=== PATIENT | male | born 1950 | race Two or more races ===

== ENCOUNTER 2017-06-19 09:10 | Outpatient (CLI) | payer OTHER ==
[~2017-06-19 09:10] MED LIST: IBUPROFEN800 MG PO; ORPH100T PO
== END 2017-06-19 09:13 | disposition home or self-care (01) ==
LOC: RAD 09:10
DX: M19.049 Primary osteoarthritis, unspecified hand (principal); M54.12 Radiculopathy, cervical region

== ENCOUNTER 2017-06-26 09:30 | Outpatient (CLI) | payer OTHER | END 2017-06-26 09:38 | disposition home or self-care (01) | LOC: LAB 09:30 | DX: I10 Essential (primary) hypertension (principal); Z12.11 Encounter for screening for malignant neoplasm of colon; E78.2 Mixed hyperlipidemia; N41.8 Other inflammatory diseases of prostate ==

== ENCOUNTER 2017-07-03 10:04 | Emergency (ER) | payer OTHER ==
[~2017-07-03] VITALS: Ht 157.5 cm; Wt 61.7 kg
[2017-07-03] MEDS ORDERED: DICLOFENAC POTA50 MG (10:41)
== END 2017-07-03 17:11 | disposition home or self-care (01) ==
LOC: ER 10:04
DX: M54.5 Low back pain (principal)

== ENCOUNTER → 2018-05-28 08:14 | Outpatient (CLI) | payer OTHER ==
[~2018-05-28 08:14] MED LIST changes: +DICLOFENAC POTA50 MG
== END | disposition home or self-care (01) ==
LOC: LAB 08:14
DX: N41.8 Other inflammatory diseases of prostate (principal)

== ENCOUNTER 2018-05-31 09:53 | Outpatient (CLI) | payer OTHER | END 2018-05-31 09:57 | disposition home or self-care (01) | LOC: LAB 09:53 | DX: N41.8 Other inflammatory diseases of prostate (principal) ==

== ENCOUNTER 2018-06-25 09:59 | Emergency (ER) | payer OTHER ==
[~2018-06-25] VITALS: Ht 157.5 cm; Wt 59.0 kg
== END 2018-06-25 11:27 | disposition home or self-care (01) ==
LOC: ER 09:59
DX: R11.11 Vomiting without nausea (principal)

== ENCOUNTER 2018-12-24 08:35 | Outpatient (CLI) | payer OTHER | END 2018-12-24 15:07 | disposition home or self-care (01) | LOC: LAB 08:35 | DX: R06.09 Other forms of dyspnea (principal); I10 Essential (primary) hypertension; D64.89 Other specified anemias; E78.00 Pure hypercholesterolemia, unspecified; N39.0 Urinary tract infection, site not specified ==

== ENCOUNTER → 2018-12-30 | Outpatient (CLI) | payer OTHER | END | disposition home or self-care (01) | LOC: RAD 17:25 | DX: R06.09 Other forms of dyspnea (principal); R06.02 Shortness of breath ==

== ENCOUNTER 2019-04-01 09:17 | Outpatient (CLI) | payer OTHER | END 2019-04-01 09:23 | disposition home or self-care (01) | LOC: LAB 09:17 | DX: N39.0 Urinary tract infection, site not specified (principal); I10 Essential (primary) hypertension; E78.00 Pure hypercholesterolemia, unspecified; Z12.12 Encounter for screening for malignant neoplasm of rectum; N41.8 Other inflammatory diseases of prostate ==

== ENCOUNTER → 2019-04-02 13:17 | Outpatient (CLI) | payer OTHER | END | disposition home or self-care (01) | LOC: LAB 13:17 | DX: N41.8 Other inflammatory diseases of prostate (principal); E78.00 Pure hypercholesterolemia, unspecified; I10 Essential (primary) hypertension; Z12.12 Encounter for screening for malignant neoplasm of rectum; N39.0 Urinary tract infection, site not specified ==

== ENCOUNTER 2019-04-11 11:40 | Outpatient (CLI) | payer OTHER | END 2019-04-11 11:48 | disposition home or self-care (01) | LOC: SONOGRAMA 11:40 → MAMO-SONO 11:45 → SONOGRAMA 11:48 | DX: M25.511 Pain in right shoulder (principal) ==

== ENCOUNTER 2019-08-25 10:29 | Outpatient (CLI) | payer OTHER | END 2019-08-25 10:34 | disposition home or self-care (01) | LOC: LAB 10:29 | PROVIDERS: ATTEND Internal Medicine Hepatology | DX: K62.5 Hemorrhage of anus and rectum (principal); Z12.11 Encounter for screening for malignant neoplasm of colon ==

== ENCOUNTER → 2019-09-23 10:00 | Outpatient (CLI) | payer OTHER | END | disposition home or self-care (01) | LOC: LAB 10:00 | DX: N39.0 Urinary tract infection, site not specified (principal); I10 Essential (primary) hypertension; Z12.12 Encounter for screening for malignant neoplasm of rectum; E78.00 Pure hypercholesterolemia, unspecified; N41.8 Other inflammatory diseases of prostate ==

== ENCOUNTER 2020-03-30 08:18 | Outpatient (CLI) | payer OTHER | END 2020-03-30 08:21 | disposition home or self-care (01) | LOC: LAB 08:18 | DX: D64.89 Other specified anemias (principal); N39.0 Urinary tract infection, site not specified; E78.00 Pure hypercholesterolemia, unspecified; I10 Essential (primary) hypertension ==

== ENCOUNTER 2020-06-29 09:19 | Outpatient (CLI) | payer OTHER | END 2020-06-29 09:25 | disposition home or self-care (01) | LOC: LAB 09:19 | DX: N41.8 Other inflammatory diseases of prostate (principal); N39.0 Urinary tract infection, site not specified; Z12.12 Encounter for screening for malignant neoplasm of rectum; I10 Essential (primary) hypertension ==

== ENCOUNTER → 2020-07-01 10:18 | Outpatient (CLI) | payer OTHER | END | disposition home or self-care (01) | LOC: LAB 10:18 | DX: I10 Essential (primary) hypertension (principal); N41.8 Other inflammatory diseases of prostate; N39.0 Urinary tract infection, site not specified; Z12.11 Encounter for screening for malignant neoplasm of colon ==

== ENCOUNTER 2020-11-02 10:47 | Outpatient (CLI) | payer OTHER | END 2020-11-02 10:52 | disposition home or self-care (01) | LOC: RAD 10:47 | DX: R07.89 Other chest pain (principal); I70.0 Atherosclerosis of aorta ==

== ENCOUNTER → 2020-12-14 08:34 | Outpatient (CLI) | payer OTHER | END | disposition home or self-care (01) | LOC: LAB 08:34 | DX: D64.89 Other specified anemias (principal); R73.01 Impaired fasting glucose ==

== ENCOUNTER 2021-03-22 08:58 | Outpatient (CLI) | payer OTHER | END 2021-03-22 15:00 | disposition home or self-care (01) | LOC: LAB 08:58 | DX: I10 Essential (primary) hypertension (principal); Z12.12 Encounter for screening for malignant neoplasm of rectum; R73.01 Impaired fasting glucose; N41.9 Inflammatory disease of prostate, unspecified ==

== ENCOUNTER 2021-06-14 08:00 | Outpatient (CLI) | payer OTHER | END 2021-06-14 08:07 | disposition home or self-care (01) | LOC: LAB 08:00 | DX: D64.9 Anemia, unspecified (principal); R73.01 Impaired fasting glucose; E78.00 Pure hypercholesterolemia, unspecified ==

== ENCOUNTER 2021-09-27 09:03 | Outpatient (CLI) | payer OTHER | END 2021-09-27 10:05 | disposition home or self-care (01) | LOC: LAB 09:03 | DX: E78.00 Pure hypercholesterolemia, unspecified (principal) ==

== ENCOUNTER 2021-10-23 13:49 | Outpatient (CLI) | payer OTHER | END 2021-10-23 13:59 | disposition home or self-care (01) | LOC: SONOGRAMA 13:49 | DX: K40.90 Unilateral inguinal hernia, without obstruction or gangrene, not specified as recurrent (principal) ==

== ENCOUNTER 2022-03-21 09:13 | Outpatient (CLI) | payer OTHER | END 2022-03-21 09:14 | disposition home or self-care (01) | LOC: LAB 09:13 | DX: I10 Essential (primary) hypertension (principal); Z12.12 Encounter for screening for malignant neoplasm of rectum; N39.0 Urinary tract infection, site not specified; E78.00 Pure hypercholesterolemia, unspecified ==

== ENCOUNTER 2022-03-27 09:55 | Outpatient (CLI) | payer OTHER | END 2022-03-27 09:56 | disposition home or self-care (01) | LOC: LAB 09:55 | DX: Z12.12 Encounter for screening for malignant neoplasm of rectum (principal); N39.0 Urinary tract infection, site not specified; E78.00 Pure hypercholesterolemia, unspecified ==

== ENCOUNTER 2022-04-01 16:25 | Outpatient (CLI) | payer OTHER | END 2022-04-01 16:42 | disposition home or self-care (01) | LOC: RAD 16:25 | DX: L98.9 Disorder of the skin and subcutaneous tissue, unspecified (principal) ==

== ENCOUNTER → 2022-06-29 07:15 | Outpatient (CLI) | payer OTHER | END | disposition home or self-care (01) | LOC: LAB 07:15 | DX: D64.9 Anemia, unspecified (principal); I10 Essential (primary) hypertension; N39.0 Urinary tract infection, site not specified ==

== ENCOUNTER 2022-09-04 13:33 | Outpatient (CLI) | payer OTHER | END 2022-09-04 13:48 | disposition home or self-care (01) | LOC: TOM 13:33 | PROVIDERS: ATTEND Psychiatry & Neurology Neurology | DX: I67.82 Cerebral ischemia (principal) ==

== ENCOUNTER 2022-09-26 10:08 | Outpatient (CLI) | payer OTHER | END 2022-09-26 10:13 | disposition home or self-care (01) | LOC: LAB 10:08 | DX: E78.00 Pure hypercholesterolemia, unspecified (principal); N39.0 Urinary tract infection, site not specified ==

== ENCOUNTER → 2023-01-16 08:54 | Outpatient (CLI) | payer OTHER ==
[2023-01-18 09:11] LABS: FOLIC ACID > 20.00 ng/ml (4.78-20); VITAMIN D3 25 HYDROXY 33.71 ng/ml (30-120)
== END | disposition home or self-care (01) ==
LOC: LAB 08:54
DX: Z13.1 Encounter for screening for diabetes mellitus (principal); E55.9 Vitamin D deficiency, unspecified; D64.9 Anemia, unspecified

== ENCOUNTER 2023-04-17 09:10 | Outpatient (CLI) | payer OTHER ==
[2023-04-17 10:29] LABS: URINE APPEARANCE Clear; URINE BILIRRUBIN Negative (NEGATIVE); URINE BLOOD Negative; URINE COLOR Yellow; URINE GLUCOSE Negative (NEGATIVE); URINE LEUKOCYTE Negative; URINE NITRATE Negative; URINE PROTEIN Negative (NEGATIVE); URINE UROBILINOGEN 0.2 E.U./dl
[2023-04-17 10:33] LABS: URINE RBC 9.9 uL (0.0-20.8)
[2023-04-17 10:44] LABS: HEMATOCRIT 41.1 % (39.0-48.0); HEMOGLOBIN 14.3 g/dL (13-16.00); MEAN CELL VOLUME 89.2 fL (80.0-100.00); MEAN CORPUSCULAR HGB CONC 34.7 g/dl (32.0-36.0); PLATELET COUNT 260 K/uL (150-450); RED BLOOD COUNT 4.61 M/uL (4.00-6.00); RED CELL DISTRIBUTION WIDTH 13.8 % (11.5-14.5)
[2023-04-17 10:49] LABS: URINE BACTERIA 2.5 uL (0.0-1933); URINE EPITHELIAL CELLS 0.9 uL (0.0-38.8); URINE WBC 1.3 uL (0.0-23.2)
[2023-04-17 11:10] LABS: ALBUMIN 3.7 gm/dL (3.4-5.0); BILIRUBIN TOTAL 0.85 mg/dL (0.3-1.2); CALCIUM 8.9 mg/dL (8.5-10.1); CHOL HDL RATIO 3.6 (0-5.0); CREATININE SERUM 1.11 mg/dL (0.70-1.30); GFR 64.58; GLOBULINA 3.1 G/DL (2.4-3.5); POTASSIUM 4.17 mEq/L (3.5-5.1); TOTAL PROTEIN 6.8 gm/dL (6.4-8.2)
== END 2023-04-17 09:18 | disposition home or self-care (01) ==
LOC: LAB 09:10
DX: Z12.12 Encounter for screening for malignant neoplasm of rectum (principal)

== ENCOUNTER → 2023-04-20 10:23 | Outpatient (CLI) | payer OTHER ==
[2023-04-20 12:36] LABS: ob NEGATIVE (NEGATIVE)
== END | disposition home or self-care (01) ==
LOC: LAB 10:23
DX: D64.9 Anemia, unspecified (principal); I10 Essential (primary) hypertension; E78.00 Pure hypercholesterolemia, unspecified; Z12.12 Encounter for screening for malignant neoplasm of rectum; N39.0 Urinary tract infection, site not specified

== ENCOUNTER 2024-03-11 11:08 | Outpatient (CLI) | payer OTHER ==
[2024-03-11 12:21] LABS: CALCIUM 8.8 mg/dL (8.5-10.1); CREATININE SERUM 1.02 mg/dL (0.70-1.30); GFR 71.2; POTASSIUM 4.44 mEq/L (3.5-5.1)
== END 2024-03-11 11:12 | disposition home or self-care (01) ==
LOC: LAB 11:08
DX: E78.00 Pure hypercholesterolemia, unspecified (principal); Z12.11 Encounter for screening for malignant neoplasm of colon

== ENCOUNTER 2024-06-17 11:02 | Outpatient (CLI) | payer OTHER ==
[2024-06-17 11:16] LABS: HEMATOCRIT 42.3 % (39.0-48.0); HEMOGLOBIN 14.8 g/dL (13-16.00); MEAN CELL VOLUME 87.3 fL (80.0-100.00); MEAN CORPUSCULAR HEMOGLOBIN 30.5 pg (27.00-32.0); PLATELET COUNT 283 K/uL (150-450); RED BLOOD COUNT 4.85 M/uL (4.00-6.00); RED CELL DISTRIBUTION WIDTH 14.5 % (11.5-14.5)
[2024-06-17 11:22] LABS: PH,URINE 7.5 (5.0-8.0); URINE APPEARANCE Clear; URINE BILIRRUBIN Negative (NEGATIVE); URINE BLOOD Negative; URINE COLOR Yellow; URINE GLUCOSE Negative (NEGATIVE); URINE KETONE Negative (NEGATIVE); URINE LEUKOCYTE Negative; URINE NITRATE Negative; URINE PROTEIN Negative (NEGATIVE); URINE UROBILINOGEN 0.2 E.U./dl
[2024-06-17 11:25] LABS: URINE RBC 15.7 uL (0.0-20.8)
[2024-06-17 16:26] LABS: URINE WBC 0.6 uL (0.0-23.2)
[2024-06-17 16:27] LABS: URINE BACTERIA 2.4 uL (0.0-1933)
[2024-06-17 16:40] LABS: ALBUMIN 3.8 gm/dL (3.4-5.0); CALCIUM 8.8 mg/dL (8.5-10.1); CREATININE SERUM 1.11 mg/dL (0.70-1.30); GFR 64.41; GLOBULINA 3.5 G/DL (2.4-3.5); POTASSIUM 4.36 mEq/L (3.5-5.1); TOTAL PROTEIN 7.3 gm/dL (6.4-8.2)
== END 2024-06-17 11:09 | disposition home or self-care (01) ==
LOC: LAB 11:02
DX: D64.9 Anemia, unspecified (principal); I10 Essential (primary) hypertension; N39.0 Urinary tract infection, site not specified

== ENCOUNTER 2024-07-27 12:36 | Outpatient (CLI) | payer OTHER | END 2024-07-27 12:50 | disposition home or self-care (01) | LOC: MRI 12:36 | PROVIDERS: ATTEND General Practice | DX: G31.84 Mild cognitive impairment of uncertain or unknown etiology (principal) | CPT/HCPCS: 70551 ==

== ENCOUNTER 2024-07-29 08:25 | Outpatient (CLI) | payer OTHER ==
[2024-07-29 10:53] LABS: BASO % 0.7 % (0.1-1.2); EOS # 0.15 (0.04-0.54); EOS % 2.2 % (0.7-7.0); HEMATOCRIT 40.3 % (40.1-51.0); HEMOGLOBIN 14.2 g/dL (13.7-17.5); LYMPH # 2.19 (1.18-3.74); LYMPH % 32.4 % (19.3-53.1); MEAN CORPUSCULAR HEMOGLOBIN 30.1 pg (25.6-32.2); MONO % 11.8 % (4.7-12.5); NEUT # 3.55 (1.56-6.13); NEUT % 52.6 % (34.0-71.1); PLATELET COUNT 282 K/uL (163-369); RED BLOOD COUNT 4.71 M/uL (4.63-6.08)
[2024-07-29 11:40] LABS: ALBUMIN 3.7 gm/dL (3.4-5.0); BILIRUBIN TOTAL 0.93 mg/dL (0.3-1.2); CALCIUM 8.9 mg/dL (8.5-10.1); CHOL HDL RATIO 3.5 (0-5.0); CREATININE SERUM 1.09 mg/dL (0.70-1.30); GFR 65.77; GLOBULINA 3.2 G/DL (2.4-3.5); POTASSIUM 3.95 mEq/L (3.5-5.1); T4 TOTAL 6.98 UG/DL (4.5-12.1); TOTAL PROTEIN 6.9 gm/dL (6.4-8.2); TSH 2.99 uIU/mL (0.358-3.74)
[2024-07-31 10:19] LABS: FOLIC ACID > 20.00 ng/ml (4.78-20); VITAMIN D3 25 HYDROXY 27.61 ng/ml (30-120)
== END 2024-07-29 08:31 | disposition home or self-care (01) ==
LOC: LAB 08:25
PROVIDERS: ATTEND General Practice
DX: D51.9 Vitamin B12 deficiency anemia, unspecified (principal); E03.9 Hypothyroidism, unspecified

== ENCOUNTER → 2024-10-14 08:39 | Outpatient (CLI) | payer OTHER ==
[2024-10-14 11:23] LABS: BUN CREA RATIO 15.0 (7.0-25.0); CHOL HDL RATIO 3.5 (0-5.0); CREATININE SERUM 1.08 mg/dL (0.70-1.30); GFR 66.48; GLUCOSE FASTING 91.0 mg/dL (65-100); HDL 45.0 mg/dl (40-60); LDL 100.0 mg/dl (0-130); OSMOLALITY SERUM 275.0 MOSM/KG (275-295); VLDL 14.0 (0-39)
== END | disposition home or self-care (01) ==
LOC: LAB 08:39
DX: I10 Essential (primary) hypertension (principal); E78.00 Pure hypercholesterolemia, unspecified

== ENCOUNTER 2024-12-01 18:55 | Emergency (ER) | payer OTHER ==
[~2024-12-01] VITALS: Ht 157.5 cm; Wt 60.8 kg
[2024-12-01] MEDS ORDERED: LACTOBACILLUS ACIDOPHILUS 1 CAP CAP PO ONE ×2 (21:55→22:00)
[2024-12-01] MEDS ORDERED: FAMOTIDINE/PF 20 MG/2 ML VIAL ONE (21:56)
[2024-12-01] MEDS ORDERED: 0.9 % SODIUM CHLORIDE 100 ML IV ONE (22:00)
[2024-12-01] MEDS ORDERED: FAMOTIDINE/PF 20 MG/2 ML VIAL IV ONE (22:00)
[2024-12-01 22:20] LABS: BASO % 0.1 % (0.1-1.2); EOS # 0.20 (0.04-0.54); EOS % 2.1 % (0.7-7.0); LYMPH # 1.89 (1.18-3.74); LYMPH % 20.0 % (19.3-53.1); MEAN PLATELET VOLUME 9.20 fl (9.4-12.4); MONO # 1.22 (0.24-0.82); NEUT # 6.08 (1.56-6.13); NEUT % 64.6 % (34.0-71.1); RED CELL DISTRIBUTION WIDTH 13.3 % (11.6-14.4)
[2024-12-01 22:23] LABS: MONO % 12.9 % (4.7-12.5)
[2024-12-01 22:51] LABS: ALT/SGPT 27.0 U/L (12-78); AST/SGOT 24.0 U/L (15-37); BILIRUBIN TOTAL 0.92 mg/dL (0.3-1.2); BUN CREA RATIO 19.0 (7.0-25.0); CREATININE SERUM 1.29 mg/dL (0.70-1.30); GFR 54.15; GLOBULINA 3.7 G/DL (2.4-3.5); GLUCOSE FASTING 113.0 mg/dL (65-100); OSMOLALITY SERUM 282.0 MOSM/KG (275-295)
[2024-12-02 02:23] LABS: URINE APPEARANCE Clear; URINE BILIRRUBIN Negative (NEGATIVE); URINE BLOOD Negative; URINE COLOR Yellow; URINE GLUCOSE Negative (NEGATIVE); URINE KETONE Negative (NEGATIVE); URINE LEUKOCYTE Negative; URINE NITRATE Negative; URINE PROTEIN Negative (NEGATIVE); URINE UROBILINOGEN 0.2 E.U./dl
[2024-12-02 02:28] LABS: URINE BACTERIA 8.3 uL (0.0-1933); URINE EPITHELIAL CELLS 1.8 uL (0.0-38.8); URINE RBC 4.8 uL (0.0-20.8); URINE WBC 17.4 uL (0.0-23.2)
[2024-12-02 02:31] LABS: URINE CAST 0.29 uL (0.0-1.40)
== END 2024-12-02 10:35 | disposition home or self-care (01) ==
LOC: ER 18:55
PROVIDERS: General Practice
DX: K52.9 Noninfective gastroenteritis and colitis, unspecified (principal)

== ENCOUNTER 2025-01-06 08:59 | Outpatient (CLI) | payer OTHER ==
[2025-01-06 10:40] LABS: BASO % 0.6 % (0.1-1.2); EOS # 0.13 (0.04-0.54); EOS % 2.5 % (0.7-7.0); LYMPH # 1.74 (1.18-3.74); LYMPH % 32.9 % (19.3-53.1); MEAN PLATELET VOLUME 9.80 fl (9.4-12.4); MONO # 0.62 (0.24-0.82); MONO % 11.7 % (4.7-12.5); NEUT # 2.76 (1.56-6.13); NEUT % 52.1 % (34.0-71.1); RED CELL DISTRIBUTION WIDTH 12.8 % (11.6-14.4)
[2025-01-06 10:43] LABS: INR 1.15
[2025-01-06 10:51] LABS: BUN CREA RATIO 10.0 (7.0-25.0); CREATININE SERUM 1.05 mg/dL (0.70-1.30); GFR 68.67; GLUCOSE FASTING 94.0 mg/dL (65-100); OSMOLALITY SERUM 273.0 MOSM/KG (275-295)
== END 2025-01-06 09:00 | disposition home or self-care (01) ==
LOC: LAB 08:59
DX: D68.9 Coagulation defect, unspecified (principal); E78.5 Hyperlipidemia, unspecified

== ENCOUNTER 2025-01-27 08:58 | Outpatient (CLI) | payer OTHER ==
[2025-01-27 10:26] LABS: URINE APPEARANCE Clear; URINE BILIRRUBIN Negative (NEGATIVE); URINE BLOOD Negative; URINE COLOR Yellow; URINE GLUCOSE Negative (NEGATIVE); URINE KETONE Negative (NEGATIVE); URINE LEUKOCYTE Negative; URINE NITRATE Negative; URINE PROTEIN Negative (NEGATIVE); URINE UROBILINOGEN 0.2 E.U./dl
[2025-01-27 10:26] LABS: BASO % 0.5 % (0.1-1.2); EOS # 0.33 (0.04-0.54); EOS % 5.1 % (0.7-7.0); LYMPH # 2.05 (1.18-3.74); LYMPH % 31.9 % (19.3-53.1); MEAN PLATELET VOLUME 9.60 fl (9.4-12.4); MONO # 0.78 (0.24-0.82); NEUT # 3.22 (1.56-6.13); NEUT % 50.1 % (34.0-71.1); RED CELL DISTRIBUTION WIDTH 12.5 % (11.6-14.4)
[2025-01-27 10:28] LABS: MONO % 12.1 % (4.7-12.5)
[2025-01-27 10:29] LABS: URINE BACTERIA 6.8 uL (0.0-1933); URINE RBC 14.8 uL (0.0-20.8)
[2025-01-27 10:33] LABS: URINE CAST 0.00 uL (0.0-1.40); URINE EPITHELIAL CELLS 0.6 uL (0.0-38.8); URINE WBC 1.6 uL (0.0-23.2)
== END 2025-01-27 09:03 | disposition home or self-care (01) ==
LOC: LAB 08:58
DX: D64.9 Anemia, unspecified (principal); N39.0 Urinary tract infection, site not specified